=== PATIENT | female | born 1980 | race African-American/Black ===

== ENCOUNTER 2017-04-17 21:55 | Emergency (ER) | payer MEDICAID ==
[~2017-04-17] VITALS: Ht 165.1 cm; Wt 130.0 kg
[~2017-04-17 21:55] MED LIST: IBUP800T23 PO
[2017-04-17 21:58] VITALS: BP 120/76; PULSE 72; RESP 16; TEMP 98.5; O2SAT 98
--- NOTE | 2017-04-17 23:08 | PD ---
HPI Chief Complaint: Dizziness Time Seen by Provider: 22:59 Travel History International Travel<30 days: No Contact w/Intl Traveler<30days: No Traveled to known affect area: No History of Present Illness HPI 37-year-old female here for evaluation of headache, nausea, and vomiting. The patient reports that for the last 3 days she has had a constant headache which she describes as pressure over her bilateral temporal area as well as posterior scalp. Currently the pain is 7 out of 10. She reports the pain is worse if she leans forward or stands up too quickly. She is also had some nausea and vomiting. She reports intermittent blurred vision while at work. Currently no blurred vision. She took ibuprofen and states that this alleviates her pain, however it returns. She reports recent upper respiratory symptoms and sinus congestion. Currently no fevers. No neck pain or stiffness. History of gastric bypass. No abdominal pain. PFSH Past Medical History Arthritis: Yes (KNEES) Autoimmune Disease: No Blood Disorders: No Anxiety: No Depression: No Cancer: No Cardiovascular Problems: No Diabetes: No Endocrine: No Genitourinary: Yes (UTI) Immune Disorder: No Musculoskeletal: Yes Neurologic: No Psychiatric: No Reproductive: No Respiratory: No Thyroid Disease: No PNEUMOCCOCAL Vaccine (Year): 2 ?: Unknown LMP: 04/02/17 : 3 Para: 0 Miscarriage: 3 Dilation and Curettage (D&C): Yes (X 3) Past Surgical History Abdominal Surgery: Yes (GASTRIC BYPASS 07/19) Other Surgery: Yes (D&C) Social History Alcohol Use: Yes (occ) Tobacco Use: No Substance Use: No Allergies-Medications (Allergen,Severity, Reaction): Coded Allergies: amoxicillin (Unverified Allergy, Mild, 04/17/17) Reported Meds & Prescriptions Reported Meds & Active Scripts Active Ibuprofen 800 Mg Tab 800 Mg PO Q6 PRN Review of Systems Except as stated in HPI: all other systems reviewed are Neg Physical Exam Narrative GENERAL: Well-developed, well-nourished, overweight, comfortable, pleasant, no apparent distress. SKIN: Focused skin assessment warm/dry. HEAD: Atraumatic. Normocephalic. EYES: Pupils equal, round, 3 mm, reactive to light. EOMI. No scleral icterus. No injection or drainage. ENT: Mucous membranes pink and moist. NECK: Trachea midline. No JVD. CARDIOVASCULAR: Regular rate and rhythm. RESPIRATORY: No accessory muscle use. Clear to auscultation. Breath sounds equal bilaterally. GASTROINTESTINAL: Abdomen soft, non-tender, nondistended. MUSCULOSKELETAL: No obvious deformities. No clubbing. No cyanosis. No edema. NEUROLOGICAL: Awake and alert. No obvious cranial nerve deficits. Motor grossly within normal limits. Normal speech. PSYCHIATRIC: Appropriate mood and affect; insight and judgment normal. Data Data Last Documented VS Vital Signs Date Time Temp Pulse Resp B/P (MAP) Pulse Ox O2 Delivery O2 Flow Rate FiO2 04/17/17 23:41 75 18 123/73 (90) 98 Room Air 04/17/17 21:58 98.5 Orders Orders Complete Blood Count With Diff (04/17/17 23:04) Comprehensive Metabolic Panel (04/17/17 23:04) Prothrombin Time / Inr (Pt) (04/17/17 23:04) Act Partial Throm Time (Ptt) (04/17/17 23:04) Iv Access Insert/Monitor (04/17/17 23:04) Ecg Monitoring (04/17/17 23:04) Oximetry (04/17/17 23:04) Sodium Chloride 0.9% Flush (Ns Flush) (04/17/17 23:15) Ct Brain W/O Iv Contrast(Rout) (04/17/17 ) Ed Urine Pregnancytest Poc (04/17/17 23:04) Ketorolac Inj (Toradol Inj) (04/18/17 00:00) Labs Laboratory Tests Test 04/17/17 23:35 White Blood Count 7.8 TH/MM3 Red Blood Count 4.42 MIL/MM3 Hemoglobin 10.9 GM/DL Hematocrit 34.2 % Mean Corpuscular Volume 77.4 FL Mean Corpuscular Hemoglobin 24.6 PG Mean Corpuscular Hemoglobin Concent 31.8 % Red Cell Distribution Width 14.9 % Platelet Count 300 TH/MM3 Mean Platelet Volume 7.9 FL Neutrophils (%) (Auto) 63.2 % Lymphocytes (%) (Auto) 26.9 % Monocytes (%) (Auto) 7.0 % Eosinophils (%) (Auto) 2.3 % Basophils (%) (Auto) 0.6 % Neutrophils # (Auto) 4.9 TH/MM3 Lymphocytes # (Auto) 2.1 TH/MM3 Monocytes # (Auto) 0.5 TH/MM3 Eosinophils # (Auto) 0.2 TH/MM3 Basophils # (Auto) 0.0 TH/MM3 CBC Comment DIFF FINAL Differential Comment Prothrombin Time 10.0 SEC Prothromb Time International Ratio 0.9 RATIO Activated Partial Thromboplast Time 25.8 SEC Blood Urea Nitrogen 11 MG/DL Creatinine 0.76 MG/DL Random Glucose 115 MG/DL Total Protein 7.6 GM/DL Albumin 3.2 GM/DL Calcium Level 8.4 MG/DL Alkaline Phosphatase 104 U/L Aspartate Amino Transf (AST/SGOT) 16 U/L Alanine Aminotransferase (ALT/SGPT) 25 U/L Total Bilirubin 0.2 MG/DL Sodium Level 140 MEQ/L Potassium Level 4.0 MEQ/L Chloride Level 104 MEQ/L Carbon Dioxide Level 27.1 MEQ/L Anion Gap 9 MEQ/L Estimat Glomerular Filtration Rate 103 ML/MIN [facility] Medical Decision Making Medical Screen Exam Complete: Yes Emergency Medical Condition: Yes Differential Diagnosis Tension headache, cluster headache, migraine headache, pseudotumor cerebri/ benign intracranial hypertension, meningitis/encephalitis unlikely Narrative Course Vital signs show heart rate 72, blood pressure 120/76, pulse ox 98% on room air , oral temp of 98.5F. CBC: WBC 7.8, hemoglobin 10.9, hematocrit 34.2, platelets 300. CMP is unremarkable. Urine is negative. CT head: CONCLUSION: No acute intracranial findings. Mild sinus disease Patient was made aware of all findings. She is resting comfortably. Patient has had upper respiratory symptoms and sinus congestion. This is most likely the culprit for her head discomfort. 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 Currently she does not have blurred vision. Although benign intracranial hypertension and is on the differential, at this point I believe we should try to treat her sinusitis first, and if her symptoms do not improve, then she should follow-up with a neurologist for further evaluation. Patient agrees with this plan. She is allergic to amoxicillin, so she will be started on doxycycline for sinusitis. She was given IV Toradol and IV Reglan with mild improvement in headache. I do not believe she has an SAH/meningitis/encephalitis. At this point I believe she is stable for discharge home with outpatient follow-up. She was informed on when to return to the emergency department. She verbalizes understanding and agreement with plan. Diagnosis Primary Impression: Sinusitis Qualified Codes: J01.90 - Acute sinusitis, unspecified Additional Impression: Headache Qualified Codes: R51 - Headache Referrals: Vidal Quezada PhD 1 week Neurologist Primary Care Physician 3 days Additional Instructions: Follow-up with your primary care physician this week. Follow-up with neurologist Dr. Quezada or a neurologist of your choice this week. Return to the emergency department for worsening symptoms or any other concerns. Scripts Doxycycline Hyclate (Doxycycline Hyclate) 100 Mg Cap 100 MG PO BID for Infection for 10 Days, #20 CAP 0 Refills Prov: Federico Aldana MD 04/18/17 Disposition: 01 DISCHARGE HOME Condition: Stable Federico Aldana MD Apr 17, 2017 23:08
[2017-04-17] MEDS ORDERED: SODIUM CHLORIDE 0.9% FLUSH 10 ML FLUSH IV FLUSH PRN (23:15)
[2017-04-17 23:40] VITALS: RESP 18; O2SAT 98
[2017-04-17 23:41] VITALS: BP 123/73; PULSE 75; RESP 18; O2SAT 98
[2017-04-17 23:46] LABS: AUTOMATED NEUTROPHIL # 4.9 TH/MM3 (1.8-7.7); BASOPHIL % 0.6 % (0.0-2.0); EOSINOPHIL # 0.2 TH/MM3 (0-0.4); EOSINOPHIL % 2.3 % (0.0-4.0); HEMATOCRIT 34.2 % (35.0-46.0); HEMO FLAGS DIFF FINAL; LYMPH % 26.9 % (9.0-44.0); LYMPHOCYTE # 2.1 TH/MM3 (1.0-4.8); MEAN CELL VOLUME 77.4 FL (80.0-100.0); MEAN CORPUSCULAR HEMOGLOBIN 24.6 PG (27.0-34.0); MEAN CORPUSCULAR HGB CONC 31.8 % (32.0-36.0); NEUT % 63.2 % (16.0-70.0); PLATELET COUNT 300 TH/MM3 (150-450); RED BLOOD COUNT 4.42 MIL/MM3 (4.00-5.30); RED CELL DISTRIBUTION WIDTH 14.9 % (11.6-17.2); WHITE BLOOD COUNT 7.8 TH/MM3 (4.0-11.0)
[2017-04-17 23:58] LABS: APTT (PATIENT) 25.8 SEC (24.3-30.1); INTERNATIONAL NORMALIZED RATIO 0.9 RATIO
[2017-04-18] MEDS ORDERED: KETOROLAC TROMETHAMINE 30 MG/ML (IVP) VIAL IV PUSH ONE
[2017-04-18 00:05] LABS: ALT (GPT) 25 U/L (10-53); ANION GAP 9 MEQ/L (5-15); AST (GOT) 16 U/L (15-37); BICARBONATE 27.1 MEQ/L (21.0-32.0); BLOOD UREA NITROGEN 11 MG/DL (7-18); CHLORIDE 104 MEQ/L (98-107); GLOMERULAR FILTRATION RATE 103 ML/MIN (>89); SODIUM (NA) 140 MEQ/L (136-145)
[2017-04-18 00:07] LABS: ALKALINE PHOSPHATASE 104 U/L (45-117); TOTAL BILIRUBIN ADULT 0.2 MG/DL (0.2-1.0)
--- NOTE | 2017-04-18 00:20 | RADRPT ---
EXAM DATE/TIME: 04/17/2017 23:49 [facility] COMPARISON: No previous studies available for comparison. INDICATIONS : Cephalgia x3 days. RADIATION DOSE: 34.14 CTDIvol (mGy) MEDICAL HISTORY : None SURGICAL HISTORY : None. ENCOUNTER: Initial ACUITY: 3 days PAIN SCALE: 7/10 LOCATION: cranial TECHNIQUE: Multiple contiguous axial images were obtained of the head. Using automated exposure control and adj ustment of the mA and/or kV according to patient size, radiation dose was kept as low as reasonably a chievable to obtain optimal diagnostic quality images. DICOM format image data is available electro nically for review and comparison. FINDINGS: There is no evidence of intracranial mass or hemorrhage. Nothing to suggest acute infarction. Brain i s symmetric and normal in density throughout. There is mild mucosal sinus disease present CONCLUSION: No acute intracranial findings. Mild sinus disease Kirk Garcia MD on April 18, 2017 at 0:17 Board Certified Radiologist. This report was verified electronically.
[2017-04-18] MEDS ORDERED: DOXYCYCLINE HYCLATE 100 MG CAP PO ONE (00:30)
[2017-04-18] MEDS ORDERED: DOXY100C PO (00:34)
== END 2017-04-18 00:49 | disposition home or self-care (01) ==
LOC: NEPD 21:55
DX: J01.90 Acute sinusitis, unspecified (principal); R51 Headache; R11.2 Nausea with vomiting, unspecified; H53.8 Other visual disturbances
CPT/HCPCS: 70450; 80053; 84703; 85025; 85610; 85730; 96374; 99285; J1885